=== PATIENT | female | born 1960 | race Caucasian/White ===

== ENCOUNTER 2021-10-26 16:17 | Emergency (ER) | payer BC, OTHER ==
[~2021-10-26] VITALS: Ht 152.4 cm; Wt 68.0 kg
[2021-10-26 16:21] VITALS: BP_SYST 153
[2021-10-26] MEDS ORDERED: ACETAMINOPHEN 500 MG TABLET PO ONE ×2 (17:00→17:15)
[2021-10-26] MEDS ORDERED: DIPH-TET-PERTUS Vaccine 0.5 ML VIAL (ADACEL) I.M. ONE (17:00)
[2021-10-26] MEDS ORDERED: LIDOCAINE MPF 2% 5mL VIAL INJ ONE (17:00)
[2021-10-26] MEDS ORDERED: BACITRACIN 1 GM OINT TP ONE ×2 (17:28→17:35)
[2021-10-26] MEDS ORDERED: BACITRACIN ZINC 15 GM TOPICAL OINTMENT TP ONE (17:30)
[2021-10-26] MEDS ORDERED: BACI15OI13 TP (17:30)
[2021-10-26 17:42] VITALS: BP_SYST 142
== END 2021-10-26 17:42 | disposition home or self-care (01) ==
LOC: SED 16:17
DX: S61.217A Laceration without foreign body of left little finger without damage to nail, initial encounter (principal); R03.0 Elevated blood-pressure reading, without diagnosis of hypertension; K21.9 Gastro-esophageal reflux disease without esophagitis; Z79.899 Other long term (current) drug therapy; W45.8XXA Other foreign body or object entering through skin, initial encounter; Y93.89 Activity, other specified; Y92.89 Other specified places as the place of occurrence of the external cause; Y99.8 Other external cause status
CPT/HCPCS: 12001; 99283; J2001

== ENCOUNTER 2023-12-21 01:46 | Emergency (ER) | payer OTHER ==
[~2023-12-21] VITALS: Ht 152.4 cm; Wt 65.8 kg
[~2023-12-21 01:46] MED LIST: BACI15OI13 TP
[2023-12-21 01:53] VITALS: BP_SYST 149; PULSE 90; RESP 16; TEMP 97.3; O2SAT 95
[2023-12-21] MEDS: MAG-AL HYDROX/SIMETH 30 ML UDC PO ONE (02:31)
[2023-12-21] MEDS: PANTOPRAZOLE SODIUM 40 MG TAB PO ONE (02:32)
[2023-12-21] MEDS: FAMOTIDINE 20 MG TABLET PO ONE (02:32)
[2023-12-21] MEDS ORDERED: PRO40 PO (03:03)
[2023-12-21] MEDS ORDERED: FAMO40TA71 PO (03:03)
[2023-12-21 03:15] VITALS: BP_SYST 132; PULSE 77; RESP 18; TEMP 98; O2SAT 96
== END 2023-12-21 03:15 | disposition home or self-care (01) ==
LOC: SED 01:46
DX: K21.9 Gastro-esophageal reflux disease without esophagitis (principal); R12 Heartburn; E78.5 Hyperlipidemia, unspecified; Z79.2 Long term (current) use of antibiotics
CPT/HCPCS: 93005; 99284